=== PATIENT | male | born 1990 | race American Indian/Alaskan Native ===

== ENCOUNTER 2018-04-26 22:13 | Emergency (ER) | payer OTHER ==
[2018-04-26] MEDS ORDERED: MORPHINE IV ONE (22:34)
[2018-04-26] MEDS ORDERED: ZOFRAN IV ONE (22:34)
--- NOTE | 2018-04-26 23:15 | XRay Report ---
PROCEDURE: XR CHEST 1V AP TECHNIQUE: Frontal portable view of the chest HISTORY: cp COMPARISONS: None FINDINGS: There is no evidence of infiltrate, pneumothorax or pleural fluid collection. The cardiomediastinal silhouette is normal in appearance. The bony structures are unremarkable. IMPRESSION: 1. No evidence of an acute pulmonary process. This document is electronically signed by Paty Gonzalez MD., April 26 2018 11:13:04 PM ET
--- NOTE | 2018-04-26 23:33 | Emergency Department Report ---
ED Fall HPI - General Chief Complaint: Fall Stated Complaint: FELL OFF LADDER/WARNER Time Seen by Provider: 04/26/18 22:17 Source: patient Mode of arrival: Wheelchair Limitations: No Limitations - History of Present Illness Initial Comments: 27-year-old male presents to the hospital after fall off of a ladder while cleaning gutters at about 11 AM. Patient has amnesia about the event. He remembers going out to cleaning the gutters and then waking up on the ground. Positive LOC. Patient has had persistent global headache and lower back pain since the fall. In route to the hospital today he had a syncopal episode. He also complains of a uncomfortable feeling in his chest. Denies blurred vision, nausea, vomiting, focal weakness, focal numbness, or urinary incontinence. - Related Data Previous Rx's Medication Instructions Recorded Last Taken Type Ibuprofen [Motrin] 600 mg PO Q8H PRN #30 tablet 04/27/18 Unknown Rx Allergies Allergy/AdvReac Type Severity Reaction Status Date / Time ants Allergy Unknown Uncoded 04/26/18 22:17 ED Review of Systems ROS: Stated complaint: FELL OFF LADDER/WARNER Other details as noted in HPI Comment: All other systems reviewed and negative ED Past Medical Hx - Past Medical History Previous Medical History?: No - Surgical History Past Surgical History?: Yes Additional Surgical History: nose surgery - Social History Smoking Status: Never Smoker Substance Use Type: None - Medications Home Medications: Home Medications Medication Instructions Recorded Confirmed Last Taken Type Ibuprofen [Motrin] 600 mg PO Q8H PRN #30 tablet 04/27/18 Unknown Rx ED Physical Exam - General Limitations: No Limitations - Other Other exam information: General: No limitations, patient is alert in no acute distress Head exam: Atraumatic, normocephalic Eyes exam: Normal appearance, pupils equal reactive to light, extraocular movements intact ENT: Moist mucous membrane, normal oropharynx Neck exam: Normal inspection, full range of motion, no meningismus nontender Respiratory exam: Clear to auscultation bilateral, no wheezes, rales, crackles Cardiovascular: Normal rate and rhythm, normal heart sounds, chest wall nontender Abdomen: Soft, nondistended, and nontender, with normal bowel sounds, no rebound, or guarding Extremity: Full range of motion normal inspection no deformity Back: Normal Inspection, full range of motion, diffuse midline and paraspinal lumbar tenderness, no posterior thoracic tenderness Neurologic: Alert, oriented x3, cranial nerves intact, no motor or sensory deficit Psychiatric: normal affect, normal mood Skin: Warm, dry, intact ED Course Vital Signs 04/26/18 04/27/18 22:17 00:34 Temperature 97.7 F 98.0 F Pulse Rate 105 H 82 Respiratory 18 16 Rate Blood Pressure 129/91 Blood Pressure 128/85 [Right] O2 Sat by Pulse 98 97 Oximetry - Reevaluation(s) Reevaluation #1: 04/27/18 00:45 Patient asymptomatic. Repeat vitals unremarkable. Patient declines blood draw in ED ED Medical Decision Making - EKG Data -: EKG Interpreted by [facility] EKG shows normal: sinus rhythm (qrsd 95), axis (qrs 58), QRS complexes, ST-T waves (no stemi/t inv) Rate: normal (83) - EKG Data When compared to previous EKG there are: previous EKG unavailable - Radiology Data Radiology results: report reviewed xr chest, ct head, ct c spine, ct l spine all without acute findings - Medical Decision Making No acute findings Patient refused blood draw Discharge with follow-up - Differential Diagnosis concussion, ICH, fracture, contusion Critical Care Time: No Critical care attestation.: If time is entered above; I have spent that time in minutes in the direct care of this critically ill patient, excluding procedure time. ED Disposition Clinical Impression: Head injury, closed, with LOC of unknown duration, Concussion, Fall, Low back strain Disposition: -01 TO HOME OR SELFCARE Is pt being admited?: No Does the pt Need Aspirin: No Condition: Stable Instructions: Low Back Strain (ED), Concussion (ED) Additional Instructions: Take the medication as prescribed. Follow up with your doctor or the clinic/doctor provided. Return if symptoms worsen as indicated by your discharge instructions Prescriptions: Ibuprofen [Motrin] 600 mg PO Q8H PRN #30 tablet PRN Reason: Pain Referrals: CONNIE ROLAND MD [Primary Care Provider] - 3-5 Days LULI ADAN MD [Staff Physician] - 3-5 Days (neurology ) Time of Disposition: 00:47
--- NOTE | 2018-04-27 00:02 | Cat Scan Report ---
PROCEDURE: CT HEAD/BRAIN WO CON TECHNIQUE: Computerized tomography of the head was performed without contrast material. CT DOSE LENGTH PRODUCT: 920 mGycm HISTORY: fall off ladder, with syncope COMPARISONS: None . FINDINGS: Skull and scalp: Normal . Paranasal sinuses: Moderate opacification of the ethmoid sinuses. . Ventricles and subarachnoid spaces: Normal . Cerebrum: No evidence of hemorrhage, acute infarction or mass . Cerebellum and brainstem: No evidence of hemorrhage, acute infarction or mass . Vasculature: Normal . Other: None . ASPECTS: 10 IMPRESSION: There is no evidence of an acute intracranial process. . This document is electronically signed by Imelda Cali DO., April 27 2018 12:00:04 AM ET
--- NOTE | 2018-04-27 00:05 | Cat Scan Report ---
PROCEDURE: CT LUMBAR SPINE WO CON TECHNIQUE: Computerized axial tomography of the lumbar spine was performed from T12 to the sacrum wi thout contrast material. CT DOSE LENGTH PRODUCT: 266 mGycm HISTORY: Low back pain fall off ladder, with syncope COMPARISONS: None . FINDINGS: The alignment of the vertebral bodies is normal. The heights of vertebral bodies and the disc spaces are maintained. No acute fracture or dislocation. Spinal canal is adequate at all levels L1-2: No significant abnormality . L2-3: No significant abnormality . L3-4: No significant abnormality . L4-5: No significant abnormality . L5-S1: No significant abnormality . Other: None . IMPRESSION: Normal CT lumbar spine. . This document is electronically signed by Imelda Cali DO., April 27 2018 12:02:54 AM ET
--- NOTE | 2018-04-27 00:07 | Cat Scan Report ---
PROCEDURE: CT CERVICAL SPINE WO CON TECHNIQUE: Computerized tomography of the cervical spine was performed from the skull base to T1 wit hout contrast material. CT DOSE LENGTH PRODUCT: 361 mGycm HISTORY: Cervical spine pain fall off ladder, with syncope COMPARISONS: None . FINDINGS: The alignment of the vertebral segments is normal. The heights of the vertebral bodies and the disc s paces are normal. No acute fracture or dislocation of the cervical spine. The spinal canal is adequat e at all levels. IMPRESSION: Normal CT cervical spine. . This document is electronically signed by Imelda Cali DO., April 27 2018 12:05:39 AM ET
[2018-04-27 00:35] VITALS: BP 128/85
== END 2018-04-27 01:00 | disposition home or self-care (01) ==
LOC: ED 22:13
DX: S06.0X9A Concussion with loss of consciousness of unspecified duration, initial encounter (principal); S39.012A Strain of muscle, fascia and tendon of lower back, initial encounter; W18.39XA Other fall on same level, initial encounter; Y93.89 Activity, other specified; Y92.89 Other specified places as the place of occurrence of the external cause; Y99.8 Other external cause status
CPT/HCPCS: 70450; 71045; 72125; 72131; 93005; 93010; 99284; J2270; J2405